=== PATIENT | male | born 1965 | race African-American/Black ===

== ENCOUNTER 2021-04-05 13:18 | Emergency (ER) | payer MEDICAID, OTHER ==
[~2021-04-05] VITALS: Ht 170.2 cm; Wt 90.7 kg
[2021-04-05] MEDS ORDERED: KETOROLAC TROMETH 60MG/2ML VIAL IM ONE (16:00)
[2021-04-05] MEDS ORDERED: METHOCARBAMOL 500 MG TAB PO ONE (16:00)
[2021-04-05] MEDS ORDERED: HYDROcodone-ACET 5/325MG TAB PO ONE (16:45)
[2021-04-05 17:42] VITALS: BP 122/80
== END 2021-04-05 18:09 | disposition home or self-care (01) ==
LOC: ER 13:18
DX: S82.141A Displaced bicondylar fracture of right tibia, initial encounter for closed fracture (principal); S16.1XXA Strain of muscle, fascia and tendon at neck level, initial encounter; S09.8XXA Other specified injuries of head, initial encounter; I10 Essential (primary) hypertension; M54.2 Cervicalgia; W11.XXXA Fall on and from ladder, initial encounter; Y93.89 Activity, other specified; Y92.89 Other specified places as the place of occurrence of the external cause; Y99.8 Other external cause status
CPT/HCPCS: 29505; 70450; 72040; 73502; 73562

== ENCOUNTER 2021-04-16 17:00 | Emergency (ER) | payer MEDICAID ==
[~2021-04-16] VITALS: Ht 170.2 cm; Wt 108.9 kg
[2021-04-16 19:00] VITALS: BP 135/90
[2021-04-16] MEDS ORDERED: PANTOPRAZOLE 40 MG TAB PO ONE (21:00)
== END 2021-04-16 22:25 | disposition home or self-care (01) ==
LOC: ER 17:10
DX: M79.89 Other specified soft tissue disorders (principal); S82.141D Displaced bicondylar fracture of right tibia, subsequent encounter for closed fracture with routine healing; I10 Essential (primary) hypertension; W18.39XD Other fall on same level, subsequent encounter
CPT/HCPCS: 93970